=== PATIENT | male | born 1990 | race Caucasian/White ===

== ENCOUNTER 2023-01-02 03:42 | Emergency (ER) | payer OTHER ==
[~2023-01-02] VITALS: Ht 182.9 cm; Wt 81.7 kg
[~2023-01-02 03:42] MED LIST: DIAZ5 PO; FEXO180 PO; HYDACE5 PO; VERAMIST; Zofran8 MG PO
[2023-01-02] MEDS ORDERED: PRED20 PO (06:12)
[2023-01-02] MEDS ORDERED: KETOROLAC TROMET5 ML BOTHEYES (06:12)
== END 2023-01-02 06:20 | disposition home or self-care (01) ==
LOC: ER 03:42
DX: H10.13 Acute atopic conjunctivitis, bilateral (principal); J45.909 Unspecified asthma, uncomplicated; Z79.899 Other long term (current) drug therapy
CPT/HCPCS: A9270; J7512